=== PATIENT | male | born 1990 | race Caucasian/White ===

== ENCOUNTER 2019-11-17 16:21 | Emergency (ER) | payer OTHER ==
[~2019-11-17] VITALS: Ht 190.5 cm; Wt 79.4 kg
[2019-11-17] MEDS ORDERED: NORCO 5-325 TA1 EAC2 PO (17:08)
[2019-11-17] MEDS ORDERED: PENICILLIN V P500 MG PO (17:08)
[2019-11-17 17:28] VITALS: BP 139/78
== END 2019-11-17 17:30 | disposition home or self-care (01) ==
LOC: M.ERS 16:21
DX: K04.7 Periapical abscess without sinus (principal); K02.9 Dental caries, unspecified; F17.210 Nicotine dependence, cigarettes, uncomplicated